=== PATIENT | female | born 1970 | race Caucasian/White ===

== ENCOUNTER 2017-10-08 14:52 | Emergency (ER) | payer MEDICAID ==
[~2017-10-08] VITALS: Ht 172.7 cm; Wt 54.0 kg
[2017-10-08 15:16] VITALS: BP 139/95
== END 2017-10-08 16:27 | disposition home or self-care (01) ==
LOC: ER 14:52
DX: M23.92 Unspecified internal derangement of left knee (principal); G89.29 Other chronic pain; X50.1XXA Overexertion from prolonged static or awkward postures, initial encounter; Y93.89 Activity, other specified; Y92.89 Other specified places as the place of occurrence of the external cause; Y99.8 Other external cause status
CPT/HCPCS: 73562